=== PATIENT | male | born 1980 | race Caucasian/White ===

== ENCOUNTER 2019-09-10 10:36 | Emergency (ER) | payer OTHER ==
[2019-09-10] MEDS ORDERED: Aspirin 81 mg CHEW TAB* 81 MG TAB.CHEW PO ONE (10:45)
--- NOTE | 2019-09-10 11:07 | ED ---
HPI Chest Pain - HPI Summary HPI Summary: This patient is a 39 y/o male presenting to [facility] via EMS from [facility] for mid sternal chest pain since 1999 last night. Patient reports he was lying down when his chest pain began last night. He describes a stabbing/sharp mid sternal chest pain that radiates into his left neck and down his left arm. His chest pain is aggravated with deep breaths and raising left arm. Pt reports associated symptoms of nausea, diaphoresis, dizziness, headache and blurry vision. He states headache and blurry vision have resolved now. Patient received 324 mg aspirin and nitro x2 at [facility] with no relief. Currently patient reports chest pain is rated 5/10 in severity. PMHx: Hepatitis C, dyslipidemia, NE x2 (in October 2010 and January 2016), bipolar disease. Patient reports he did not have stents placed because he signed out AMA because he was a cocaine user at that time. Patient has been taken off Lipitor recently so he can start Hep C treatment. His medications include Remeron for sleep, Lamictal for bipolar disease, Prazosin which helps nightmares. Patient is a former smoker, notes he quit a couple of days ago. He denies alcohol or drug use. Home Medications Medication Instructions Recorded Confirmed Type Elbasivir/Grazoprevir 50/100(N 1 tab PO DAILY 09/10/19 09/10/19 History [Zepatier 50/100(NF)] FLUoxetine CAP* [PROzac CAP*] 20 mg PO QPM 09/10/19 09/10/19 History Ibuprofen TAB* [Motrin TAB* 600 MG] 600 mg PO TID PRN 09/10/19 09/10/19 History Mirtazapine TAB* [Remeron TAB*] 15 mg PO QPM 09/10/19 09/10/19 History Prazosin HCl 2 mg PO QPM 09/10/19 09/10/19 History lamoTRIgine TAB(*) [LaMICtal 75 mg PO BID 09/10/19 09/10/19 History TAB(*)] - History of Current Complaint Chief Complaint: EDChestPainROMI Time Seen by Provider: 09/10/19 10:45 Hx Obtained From: Patient Onset/Duration: Started Hours Ago, Still Present Timing: Lasting Hours Current Severity: Moderate Pain Intensity: 5 Pain Scale Used: 0-10 Numeric Chest Pain Location: Mid Sternal Chest Pain Radiates: Yes Chest Pain Radiates To:: Arm - left, Neck - left side Character: Sharp/Stabbing Aggravating Factor(s): Movement - raising left arm, Deep Breaths Alleviating Factor(s): Nothing Associated Signs and Symptoms: Positive: Chest Pain, Headaches, Dizziness, Diaphoresis, Nausea, Other: - blurred vision. Negative: Fever, Chills - Allergy/Home Medications Allergies/Adverse Reactions: Allergies Allergy/AdvReac Type Severity Reaction Status Date / Time fluphenazine [From Prolixin] Allergy See Comment Verified 09/10/19 10:42 haloperidol [From Haldol] Allergy See Comment Verified 09/10/19 10:43 metoclopramide [From Reglan] Allergy See Comment Verified 09/10/19 10:43 prochlorperazine Allergy See Comment Verified 09/10/19 10:43 [From Compazine] trazodone Allergy See Comment Verified 09/10/19 10:43 Home Medications: Home Medications Elbasivir/Grazoprevir 50/100(N [Zepatier 50/100(NF)] 1 tab PO DAILY 09/10/19 [ History Confirmed 09/10/19] FLUoxetine CAP* [PROzac CAP*] 20 mg PO QPM 09/10/19 [History Confirmed 09/10/19] Ibuprofen TAB* [Motrin TAB* 600 MG] 600 mg PO TID PRN 09/10/19 [History Confirmed 09/10/19] Mirtazapine TAB* [Remeron TAB*] 15 mg PO QPM 09/10/19 [History Confirmed ] Prazosin HCl 2 mg PO QPM 09/10/19 [History Confirmed 09/10/19] lamoTRIgine TAB(*) [LaMICtal TAB(*)] 75 mg PO BID 09/10/19 [History Confirmed ] PMH/Surg Hx/FS Hx/Imm Hx Endocrine/Hematology History: Denies: Hx Diabetes Cardiovascular History: Reports: Hx Hypercholesterolemia, Hx Myocardial Infarction Psychiatric History: Reports: Hx Bipolar Disorder - Surgical History Surgical History: Yes Surgery Procedure, Year, and Place: Back surgery. Foot surgery Infectious Disease History: Yes Infectious Disease History: Reports: Hx Hepatitis - C Denies: Traveled Outside the [place] in Last 30 Days - Family History Known Family History: Negative: Diabetes - Social History Alcohol Use: None Hx Substance Use: Yes Substance Use Type: Reports: None Substance Use Comment - Amount & Last Used: past IV drug user Smoking Status (MU): Former Smoker Amount Used/How Often: quit smoking a couple of days ago Review of Systems Positive: Skin Diaphoresis. Negative: Fever Positive: Blurred Vision Positive: Chest Pain Positive: Nausea Neurological/Mental Status: Other - POSITIVE: dizziness Positive: Headache All Other Systems Reviewed And Are Negative: Yes Physical Exam - Summary Physical Exam Summary: VITAL SIGNS: Reviewed. GENERAL: Patient is a well-developed and nourished male who is lying comfortable in the stretcher. Patient is not in any acute respiratory distress. HEAD AND FACE: No signs of trauma. No ecchymosis, hematomas or skull depressions. No sinus tenderness. EYES: PERRLA, EOMI x 2, No injected conjunctiva, no nystagmus. EARS: Hearing grossly intact. Ear canals and tympanic membranes are within normal limits. MOUTH: Oropharynx within normal limits. NECK: Supple, trachea is midline, no adenopathy, no JVD, no carotid bruit, no c- spine tenderness, neck with full ROM. CHEST: Symmetric, no tenderness at palpation LUNGS: Clear to auscultation bilaterally. No wheezing or crackles. CVS: Regular rate and rhythm, S1 and S2 present, no murmurs or gallops appreciated. ABDOMEN: Soft, non-tender. No signs of distention. No rebound, no guarding, and no masses palpated. Bowel sounds are normal. EXTREMITIES: FROM in all major joints, no edema, no cyanosis or clubbing. NEURO: Alert and oriented x 3. No acute neurological deficits. Speech is normal and follows commands. SKIN: Dry and warm Triage Information Reviewed: Yes Vital Signs On Initial Exam: Initial Vitals Temp Pulse Resp BP Pulse Ox 98.9 F 74 18 122/61 96 09/10/19 10:39 09/10/19 10:39 09/10/19 10:39 09/10/19 10:39 09/10/19 10:39 Vital Signs Reviewed: Yes Procedures - Sedation Patient Received Moderate/Deep Sedation with Procedure: No Diagnostics - Vital Signs Vital Signs Temp Pulse Resp BP Pulse Ox 09/10/19 10:39 98.9 F 74 18 122/61 96 - Laboratory Result Diagrams: 09/10/19 11:05 09/10/19 11:05 Lab Statement: Any lab studies that have been ordered have been reviewed, and results considered in the medical decision making process. - Radiology Chest XR Radiology Interpretation Completed By: Radiologist Summary of Radiographic Findings: IMPRESSION: No active cardiopulmonary disease is noted. Dr. Tubbs has reviewed this report. - EKG 10:53 Cardiac Rate: NL - at 64 bpm EKG Rhythm: Sinus Rhythm Summary of EKG Findings: EKG at 1053 shows normal sinus rhyhtm at a rate of [address] elevations. Normal axis. This EKG was interpreted and reviewed by ED physician. Chest Pain Course/Dx - Course Assessment/Plan: This patient is a 39 y/o male presenting to [facility] via EMS from [facility] for mid sternal chest pain since 1999 last night. Patient reports he was lying down when his chest pain began last night. He describes a stabbing/sharp mid sternal chest pain that radiates into his left neck and down his left arm. His chest pain is aggravated with deep breaths and raising left arm. Pt reports associated symptoms of nausea, diaphoresis, dizziness, headache and blurry vision. He states headache and blurry vision have resolved now. Patient received 324 mg aspirin and nitro x2 at [facility] with no relief. Currently patient reports chest pain is rated 5/10 in severity. PMHx: Hepatitis C, dyslipidemia, NE x2 (in October 2010 and January 2016), bipolar disease. Patient reports he did not have stents placed because he signed out AMA because he was a cocaine user at that time. Patient has been taken off Lipitor recently so he can start Hep C treatment. His medications include Remeron for sleep, Lamictal for bipolar disease, Prazosin which helps nightmares. Patient is a former smoker, notes he quit a couple of days ago. He denies alcohol or drug use. In the ED course the patient was placed in a nurse monitoring, IV access was obtained, IV fluids were started. Blood test w/ o a significant abnormality except for AST is 48, AST is 92 and CPK is 267. First Troponin is 0.00. The heart to score is equal to 1. Patient reports that all symptoms have resolved. Patient Heart score is: 1 therefore, low suspicion for CAD. Patient is not hypoxic or tachycardic. Wells criteria is 0. Therefore, no suspicion for PE. Patient has no abdominal bruit thus no suspicion for AAA. Patients pain does not radiate to the back and pain has resolved thus low suspicion for aortic dissection. I discussed all the findings and test results with the patient. Patient was instructed to return to the emergency room immediately if any of the symptoms return or worsen. Patient understands and agrees. Plan of care was discussed with the patient and patient understands and agrees. All questions were answered at patient satisfaction. There were no further complaints or concerns. PE before discharge : CVS: S1 and S2 present. No murmurs appreciated. Abdominal exam before discharge: Soft, non-tender. No signs of distention. No rebound no guarding, and no masses palpated. Bowel sounds are normal. Patient is alert and oriented x 3. Patient is hemodynamically stable. - Chest Pain Differential Diagnosis/HQI/PQRI: Acute NE, ACS, Angina, CHF, Chest Wall, GI Disease, Lower Respiratory Infection, Pulmonary Edema - Diagnoses Provider Diagnoses: Atypical chest pain Discharge ED - Sign-Out/Discharge Documenting (check all that apply): Patient Departure - Discharge home - Discharge Plan Condition: Stable Disposition: HOME Patient Education Materials: Chest Pain (ED) Referrals: Brown GODFREY,Heide Mari [Primary Care Provider] - Additional Instructions: FOLLOW UP WITH YOUR PRIMARY CARE PROVIDER IN 2-3 DAYS. RETURN TO THE ED FOR ANY NEW OR WORSENING SYMPTOMS. - Billing Disposition and Condition Condition: STABLE Disposition: Home - Attestation Statements Document Initiated by Wyatt: Yes Documenting Scribe: Shara Avila Provider For Whom Wyatt is Documenting (Include Credential): Jimenez Tubbs MD Scribe Attestation: Shara Dupont, scribed for Jimenez Tubbs MD on 09/10/19 at 2048. Scribe Documentation Reviewed: Yes Provider Attestation: The documentation as recorded by the Shara miller accurately reflects the service I personally performed and the decisions made by , Jimenez Tubbs MD Status of Scribe Document: Viewed
[2019-09-10 11:31] LABS: ABS Lymphocytes 1.3 10^3/ul (1.0-4.8); ABS Monocytes 0.4 10^3/ul (0-0.8); ABS Neutrophils 4.2 10^3/ul (1.5-7.7); Eosinophil % 0.5 %; Hematocrit 42 % (42-52); Hemoglobin 14.7 g/dL (14.0-18.0); Lymphocyte % 21.7 %; Mean Corpuscular HGB Conc 35 g/dL (31-36); Mean Corpuscular Hemoglobin 30 pg (27-31); Mean Corpuscular Volume 87 fL (80-94); Mean Platelet Volume 7.8 fL (7.4-10.4); Platelet Count 213 10^3/uL (150-450); Red Blood Count 4.84 10^6 /uL (4.18-5.48); Red Cell Distribution Width 13 % (10-15); White Blood Count 5.9 10^3/uL (3.5-10.8)
[2019-09-10 11:50] LABS: Albumin 4.9 g/dL (3.2-5.2); Albumin/Globulin Ratio 1.7 (1-3); BUN/Creatinine Ratio 18.9 (8-20); Calcium 9.7 mg/dL (8.6-10.3); EGFR African American 107.4 (>60); EGFR Non-African American 88.7 (>60); Globulin 2.9 g/dL (2-4); Magnesium 2.1 mg/dL (1.9-2.7); Potassium 4.3 mmol/L (3.5-5.0); Total Bilirubin 0.3 mg/dL (0.2-1.0); Total Protein 7.8 g/dL (6.4-8.9)
[2019-09-10 11:53] LABS: CKMB ng/mL 1.6 ng/mL (0.6-6.3)
[2019-09-10 12:11] LABS: TSH (Thyroid Stimulating Horm) 0.6 mcIU/mL (0.34-5.60)
[2019-09-10] MEDS ORDERED: Ibuprofen TAB* 800 MG PO ONE (12:41)
[2019-09-10 14:54] VITALS: BP 122/77
== END 2019-09-10 14:53 | disposition home or self-care (01) ==
LOC: ED 10:36
DX: R07.89 Other chest pain (principal); E78.00 Pure hypercholesterolemia, unspecified; I25.2 Old myocardial infarction; F31.9 Bipolar disorder, unspecified; Z87.891 Personal history of nicotine dependence; H53.8 Other visual disturbances; Z88.8 Allergy status to other drugs, medicaments and biological substances
CPT/HCPCS: 36415; 71045; 80053; 82550; 82553; 83605; 83735; 83880; 84443; 84484; 85025; 85730; 93005; 99283; A9270-GY